=== PATIENT | female | born 1970 | race Caucasian/White ===

== ENCOUNTER 2017-09-03 21:27 | Emergency (ER) | payer SELFPAY ==
[2017-09-03] MEDS ORDERED: Sodium Chloride 0.9% 10 ML Syringe FLUSH PRN (21:37)
[2017-09-03] MEDS ORDERED: Thiamine 100 MG in Sodium Chloride 0.9% 100 ML IV ONE (21:44)
[2017-09-03] MEDS ORDERED: Sodium Chloride 0.9% 1,000 ML IV ONE ×2 (21:44→23:46)
[2017-09-03] MEDS ORDERED: Ketorolac 30 MG/ML SDV IVPUSH ONE (21:44)
[2017-09-03] MEDS ORDERED: Ondansetron 4 MG/2 ML SDV IVPUSH ONE (21:52)
[2017-09-03] MEDS ORDERED: Ondansetron 4 MG/2 ML SDV ONE (22:14)
--- NOTE | 2017-09-04 00:44 | EDM.PDOC ---
ED HPI GENERAL MEDICAL PROBLEM - General Chief Complaint: General Stated Complaint: KIDNEY STONE Time Seen by Provider: 09/03/17 21:30 Source of Information: Reports: Patient, Family (Tristan, the nurse's Sister) History Limitations: Reports: Intoxication - History of Present Illness INITIAL COMMENTS - FREE TEXT/NARRATIVE: 47 y.o.w.f patient, came to the ed with her SO-farm truck driver- both were intoxicated. 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 The patent was actively vomiting in the ed. As per ED nurse tristan Pt's sister, her sister has a kidney stone and she gave her Flomax before she arrived here in the ed. Pt;s sister requested a toradol shot to be given to the patient. Pt was vomiting multiple time here in the ED. She was not able to give a HPT, which was given by Gaurav. BP 128/70 RR 16 Pulse oc 98% Temp 36.6. Onset Date: 09/03/17 Onset Time: 06:00 Duration: Hour(s):, Intermittent Location: Reports: Back Quality: Reports: Ache, Burning Severity: Mild Associated Symptoms: Reports: Nausea/Vomiting, Other (intoxicated) - Related Data Allergies Allergy/AdvReac Type Severity Reaction Status Date / Time morphine Allergy Itching Verified 09/04/17 03:46 Home Meds: Home Meds NK [No Known Home Meds] 02/09/15 [History] Past Medical History Cardiovascular History: Reports: High Cholesterol, Other (See Below) Other Cardiovascular History: Episodes of SVT. - Past Surgical History Other Cardiovascular Surgeries/Procedures: Uterine albation. GI Surgical History: Reports: Cholecystectomy Female Surgical History: Reports: Section Musculoskeletal Surgical History: Reports: Other (See Below) Other Musculoskeletal Surgeries/Procedures:: States she has had several knee surgeries. Social & Family History - Tobacco Use Smoking Status *Q: Current Every Day Smoker Years of Tobacco use: 33 Packs/Tins Daily: 1 - Alcohol Use Days Per Week of Alcohol Use: 7 Number of Drinks Per Day: 6 Total Drinks Per Week: 42 - Recreational Drug Use Recreational Drug Use: No ED ROS GENERAL - Review of Systems Review Of Systems: Unable To Obtain (intoxicated) ED EXAM, GENERAL - Physical Exam Exam: See Below Exam Limited By: Intoxication General Appearance: Alert, Lethargic, Mild Distress Eye Exam: Bilateral Eye: Normal Inspection Ears: Normal External Exam Ear Exam: Bilateral Ear: Auricle Normal Nose: Normal Inspection Throat/Mouth: Normal Inspection Head: Atraumatic, Normocephalic Neck: Normal Inspection, Supple, Non-Tender Respiratory/Chest: No Respiratory Distress, Lungs Clear, Normal Breath Sounds Cardiovascular: Normal Peripheral Pulses, Regular Rate, Rhythm, No Edema, No Gallop, No Murmur, No Rub Peripheral Pulses: 1+: Radial (L) GI/Abdominal: Normal Bowel Sounds, Tender (epigastric tenderness) (Female) Exam: Deferred Rectal (Female) Exam: Deferred Back Exam: Normal Inspection Extremities: Normal Inspection Neurological: Confused ("after toradol mwas given") Psychiatric: Other (intoxicated, disrespective of the nursing staff) Skin Exam: Warm, Dry Course - Vital Signs Text/Narrative:: 47 y.o.w.f patient, came to the ed with her SO-farm truck driver- both were intoxicated. 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 The patent was actively vomiting in the ed. As per ED nurse tristan Pt's sister, her sister has a kidney stone and she gave her Flomax before she arrived here in the ed. Pt;s sister requested a toradol shot to be given to the patient. Pt was vomiting multiple time here in the ED. She was not able to give a HPT, which was given by Gaurav. BP 128/70 RR 16 Pulse oc 98% Temp 36.6. PE: Intoxicated 47 y.o.w.f with vomiting in the examination room, No flank pain. disrespectful to nursing staff Labs: ETOH 220. As the nurse asked for a UA, pt showed her the "finger" Impression: ETOH intoxication, Dehydration, Gastritis, Noncooperative Tx: NS. Zofran, Toradol (for a presumed Kidney stone as per Tristan, Pt's sister) Thiamin Reexam: Pt and her SO slept for in the ED examination room. After the 2nd liter of NS was given, the pt was finally able to ambulate. Plan: No designated farm truck driver was available and the patient refused to use a Taxi cap. She eloped from the ed, her followed her to the parking lot and drove away with his SO in the car. Cynthia Workman, [employer] was called, who recommended, not to call the police even though, the farm truck driver may be intoxicated. Last Recorded V/S: Last Vital Signs Temp 36.3 C 09/04/17 00:45 Pulse 96 09/04/17 00:45 Resp 16 09/04/17 00:45 BP 106/52 L 09/04/17 00:45 Pulse Ox 99 09/04/17 00:45 - Orders/Labs/Meds Labs: Laboratory Tests 09/03/17 09/03/17 09/03/17 Range/Units 21:55 21:55 21:55 WBC 10.0 (4.5-12.0) X10-3/uL RBC 4.28 (3.23-5.20) x10(6)uL Hgb 13.9 (11.5-15.5) g/dL Hct 39.1 (30.0-51.3) % MCV 91.4 (80-96) fL MCH 32.5 (27.7-33.6) pg MCHC 35.6 H (32.2-35.4) g/dL RDW 11.8 (11.5-15.5) % Plt Count 308 (125-369) X10(3)uL MPV 7.3 L (7.4-10.4) fL Neut % (Auto) 54.5 (46-82) % Lymph % (Auto) 35.2 (13-37) % Morrill % (Auto) 7.4 (4-12) % Eos % (Auto) 2 (1.0-5.0) % Baso % (Auto) 1 (0-2) % Neut # (Auto) 5.5 (1.6-8.3) # Lymph # (Auto) 3.5 (0.6-5.0) # Morrill # (Auto) 0.7 (0.0-1.3) # Eos # (Auto) 0.2 (0.0-0.8) # Baso # (Auto) 0.1 (0.0-0.2) # Sodium 138 (135-145) mmol/L Potassium 3.0 L (3.5-5.3) mmol/L Chloride 101 (100-110) mmol/L Carbon Dioxide 24 (21-32) mmol/L BUN 5 L (7-18) mg/dL Creatinine 0.6 (0.55-1.02) mg/dL Est Cr Clr Drug Dosing TNP Estimated GFR (MDRD) > 60 (>60) BUN/Creatinine Ratio 8.3 L (9-20) Glucose 95 (80-116) mg/dL Calcium 9.1 (8.6-10.2) mg/dL Ethyl Alcohol 0.22 H* (<0.03) % Meds: Medications Discontinued Medications Generic Name Dose Route Start Last Admin Trade Name Freq PRN Reason Stop Dose Admin Sodium Chloride 1,000 mls @ 999 mls/hr 09/03/17 21:44 09/03/17 22:00 Normal Saline IV 09/03/17 22:44 999 mls/hr .BOLUS ONE Administration Thiamine HCl 100 mg/ Sodium 101 mls @ 202 mls/hr 09/03/17 21:44 09/03/17 22: 30 Chloride IV 09/03/17 21:45 202 mls/hr ONETIME ONE Administration Sodium Chloride 1,000 mls @ 999 mls/hr 09/03/17 23:46 09/03/17 23:46 Normal Saline IV 09/04/17 00:46 999 mls/hr .BOLUS ONE Administration Ketorolac Tromethamine 30 mg 09/03/17 21:44 09/03/17 22:02 Toradol IVPUSH 09/03/17 21:45 30 mg ONETIME ONE Administration Ondansetron HCl 8 mg 09/03/17 21:52 09/03/17 22:13 Zofran IVPUSH 09/03/17 21:53 8 mg ONETIME ONE Administration Ondansetron HCl Confirm 09/03/17 22:14 09/03/17 22:31 Zofran Administered 09/03/17 22:15 Not Given Dose 4 mg .ROUTE .STK-MED ONE Sodium Chloride 10 ml 09/03/17 21:37 Saline Flush FLUSH ASDIRECTED PRN Keep Vein Open Departure - Departure Time of Disposition: 01:16 Disposition: Eloped 07 Condition: Fair Clinical Impression: ETOH abuse - Discharge Information Referrals: Tay Doll MD [Primary Care Provider] - Forms: ED Department Discharge Additional Instructions: Pt and Pt's were both drinking ETOH. Finally, the patient was able to ambulate. No designated farm truck driver was available. Pt refused to call a Taxi and walked out of the ED stating " she will Drive home". Then, the - not a patient- followed her. It appears, the drove the care out of the hospital property. Cynthia Workman, [employer], was called, who advised, not to call the police.
[2017-09-04 01:22] VITALS: BP 106/52
== END 2017-09-04 00:56 | disposition left against medical advice (07) ==
LOC: FB.ED 21:27
DX: F10.129 Alcohol abuse with intoxication, unspecified (principal); F17.210 Nicotine dependence, cigarettes, uncomplicated; Z88.5 Allergy status to narcotic agent; Y90.0 Blood alcohol level of less than 20 mg/100 ml
CPT/HCPCS: 36415; 80048; 85025; 96361; 96365; 96375; 99283; G0480; J1885; J2405; J3411; J7030; J7040

== ENCOUNTER 2024-07-12 06:12 | Day surgery (SDC) | payer BC ==
[2024-07-12] MEDS ORDERED: Lidocaine 2% 100 MG/5 ML Syringe IVPUSH ONE (06:13)
[2024-07-12] MEDS ORDERED: Ketamine 500 mg/10 ML MDV IV ONE (06:13)
[2024-07-12] MEDS ORDERED: Midazolam 1 MG/ML 2 ML SDV IV ONE (06:13)
[2024-07-12] MEDS ORDERED: Propofol 200 MG/20 ML SDV IV ONE (06:13)
[2024-07-12] MEDS ORDERED: Sodium Chloride 0.9% 10 ML Syringe FLUSH PRN (06:15)
[2024-07-12 06:53] VITALS: BP 147/83; PULSE 90
[2024-07-12] MEDS: Lactated Ringers 1,000 ML IV SCH (07:18)
[2024-07-12] MEDS: Simethicone Drops 40 MG/0.6 ML 30 ML Bottle ONE (07:35)
== END 2024-07-12 09:23 | disposition home or self-care (01) ==
LOC: FB.SDS 06:12
PROVIDERS: ATTEND Surgery
DX: Z12.11 Encounter for screening for malignant neoplasm of colon (principal); D12.0 Benign neoplasm of cecum; K62.1 Rectal polyp; K57.30 Diverticulosis of large intestine without perforation or abscess without bleeding; E78.00 Pure hypercholesterolemia, unspecified; F17.210 Nicotine dependence, cigarettes, uncomplicated; Z79.899 Other long term (current) drug therapy
CPT/HCPCS: 00811; 88305; A9270-GY; J2250; J2704; J3490; J7120